=== PATIENT | female | born 1980 | race African-American/Black ===

== ENCOUNTER 2017-08-25 13:14 | Emergency (ER) | payer SELFPAY ==
[~2017-08-25] VITALS: Ht 162.6 cm; Wt 68.0 kg
[2017-08-25] MEDS ORDERED: ACYCLOVIR400 MG ORAL (14:01)
--- NOTE | 2017-08-25 14:02 | Emergency Room Report ---
History of Present Illness General Chief Complaint: General Complaint Source: Patient Present Illness HPI 36 yo female patient presents to ER complaining of cold sores on mouth x4days. Reports sores are on skin outside of right lower lip; reports crusting of lesions; denies active draining; denies bleeding from site. Denies hx of injury to the area. Patient reports sores are painful; reports burning pain. Reports recently have dry cracked skin from cold exposure; states cold sore appeared after this time. Reports hx of cold sores 4 years ago; states was treated with antiviral medication at that time; does not know name of medication. Patient reports taking Abreva currently without relief of symptoms. Patient reports she has not been seen by primary care provider. Patient reports up to date on vaccinations. Denies recent illness. Patient denies fever, rash, chest pain, SOB. Allergies: Coded Allergies: SULFUR DIOXIDE (Verified Allergy, Unknown, 08/25/17) Patient History Past Medical History: see triage record Last Menstrual Period: 08/12/2017 Reviewed Nursing Documentation: PMH: Agreed, PSxH: Agreed Nursing Documentation-PMH Past Medical History: No Stated History Review of Systems All Other Systems: negative except mentioned in HPI Physical Exam Vital Signs Date Time Temp Pulse Resp B/P (MAP) Pulse Ox O2 Delivery O2 Flow Rate FiO2 08/25/17 13:21 98.0 74 16 130/78 98 Room Air 98.1 Sp02 EP Interpretation: reviewed, normal General Appearance: well appearing, no apparent distress, alert, GCS 15, non- toxic Head: normocephalic, atraumatic Eyes: bilateral eye normal inspection, bilateral eye PERRL ENT: hearing grossly normal, normal pharynx, normal voice, TMs + canals normal , uvula midline, moist mucus membranes Neck: normal inspection, full range of motion, no bony tend Respiratory: normal inspection, lungs clear, normal breath sounds, no accessory muscle use, no wheezing, speaking full sentences Cardiovascular #1: regular rate, rhythm Musculoskeletal: back normal, digits/nails normal, gait/station normal, normal range of motion, no calf tenderness Neurologic: alert, oriented x3, responsive, motor strength/tone normal, sensory intact, normal gait Skin: no rash, other - right lower lip: 2cm crusted lesions, no vesicles, no active draining, no bleeding Lymphatic: no adenopathy Medical Decision Making PA Attestation Dr. Cardoza is my supervising Physician whom patient management has been discussed with. Diagnostic Impression: Primary Impression: Oral herpes simplex infection ER Course Pt. presents to the ED c/o cold sore on mouth. Ddx considered but are not limited to atopic dermatitis, gingivostomatitis, pharyngitis. Vital signs: are WNL, pt. is afebrile ORDERS: None required at this time, the diagnosis is clinical. No unroofed vesicles. ED INTERVENTIONS: None required at this time. DISCHARGE: -Rx given for Acyclovir, 400mg TID x7 days. Patient may continue to use Abreva at home. At this time pt. is stable for d/c to home. Patient is resting comfortably in no acute distress, nontoxic appearing. Care plan and follow up instructions have been discussed with the patient prior to discharge. Patient provided with patient care instructions.. Patient instructed to follow-up with primary care provider in 3 - 5 days. Informed patient breakouts may occur during periods of stress or illness. Discuss future treatment options to prevent breakouts with patient; informed patient to discuss with primary care provider. Patient questions asked and answered. Patient reports understanding and agreement to treatment plan. ER precautions given. Patient instructed to return to ER immediately for any new or worsening of symptoms including but not limited to fever, worsening of pain symptoms. Last Vital Signs Date Time Temp Pulse Resp B/P (MAP) Pulse Ox O2 Delivery O2 Flow Rate FiO2 08/25/17 13:21 98.0 74 16 130/78 98 Room Air 98.1 Disposition: HOME, SELF-CARE Condition: Stable Scripts Acyclovir* (ACYCLOVIR*) 400 Mg Tablet 400 MG ORAL THREE TIMES A DAY for 7 Days, #21 TAB Prov: Niranjan Valiente 08/25/17 Patient Instructions: Cold Sore, [id number] Additional Instructions: Followup with primary care provider in 3 -5 days. Take medications as directed. Patient questions asked and answered. ER precautions given, patient instructed to return to ER immediately for any new or worsening of symptoms. Niranjan Valiente Aug 25, 2017 14:02
[2017-08-25 14:56] VITALS: BP 130/78
[2017-08-25 14:58] VITALS: BP 130/78
== END 2017-08-25 14:30 | disposition home or self-care (01) ==
LOC: EMR 13:59
DX: B00.1 Herpesviral vesicular dermatitis (principal); Z88.2 Allergy status to sulfonamides
CPT/HCPCS: 99283